=== PATIENT | male | born 1985 | race Caucasian/White ===

== ENCOUNTER → 2025-10-14 07:46 | Outpatient (CLI) | payer BC, SELFPAY ==
[2025-10-14 08:32] LABS: Hematocrit 40.7 % (41-53); Hemoglobin 13.8 g/dL (13.5-17.5); Mean Corpuscular HGB Conc 34.0 % (30-36); Mean Corpuscular Hemoglobin 30.5 PG (26-34); Mean Corpuscular Volume 89.7 fL (80-100); Platelet Count 181 X10^3/uL (150-400)
[2025-10-14 08:47] LABS: Hemoglobin A1C% w Est Avg Glu 5.0 % (4.0-6.0)
[2025-10-14 08:58] LABS: Alanine Aminotransferase 64 IU/L (<50); Albumin 4.3 g/dL (3.5-5.0); Albumin Globulin Ratio 1.5 (1.0-2.8); Alkaline Phosphatase 45 U/L (38-126); Blood Urea Nitrogen 11 mg/dL (9-20); Calcium 9.3 mg/dL (8.4-10.2); Carbon Dioxide 27 mmol/L (22-32); Chloride 104 mmol/L (98-107); Cholesterol 207 mg/dL (140-199); Estimated Glomerular Filt Rate > 60 mL/min (>60); Globulin 2.9 g/dL (1.7-4.1); Glucose 88 mg/dL (70-99); HDL Cholesterol 44 mg/dL (40-60); HEMOLYSIS < 15 (0-50); Potassium 4.7 mmol/L (3.4-5.1); Sodium 139 mmol/L (137-145); Total Protein 7.2 g/dL (6.3-8.2); Triglycerides 83 mg/dL (35-150)
[2025-10-14 09:11] LABS: Vitamin D 25 Hydroxy (D3) 34.3 ng/mL (30.0-100.0)
[2025-10-14 09:43] LABS: HIV 1 & 2 Ab/Ag 4th Gen Combo NEGATIVE (NEGATIVE); Hep C Virus Ab w/Reflex Quant NEGATIVE s/c (NEGATIVE)
== END ==
PROVIDERS: PCP Family Medicine; Referring Provider Family Medicine; Visit Provider Family Medicine
DX: Z13.1 Encounter for screening for diabetes mellitus (principal); Z13.220 Encounter for screening for lipoid disorders; Z11.59 Encounter for screening for other viral diseases; Z13.9 Encounter for screening, unspecified; Z13.21 Encounter for screening for nutritional disorder; Z11.4 Encounter for screening for human immunodeficiency virus [HIV]; E87.8 Other disorders of electrolyte and fluid balance, not elsewhere classified
CPT/HCPCS: 36415; 80053; 80061; 82306; 83036; 85027; 86803; 87389